=== PATIENT | male | born 1955 | race Caucasian/White ===

== ENCOUNTER → 2021-08-14 13:51 | Outpatient (CLI) | payer MEDICARE, BC, SELFPAY ==
[2021-08-17 15:47] LABS: QuantiFERON Mitogen Value >10.00 IU/mL (.); QuantiFERON Nil Value 0.13 IU/mL (.); QuantiFERON TB Gold Plus Negative (Negative); QuantiFERON TB1 Ag Value 0.11 IU/mL (.); QuantiFERON TB2 Ag Value 0.09 IU/mL (.)
== END ==
PROVIDERS: PCP Family Medicine; Referring Provider Dermatology; Visit Provider Dermatology
DX: D48.5 Neoplasm of uncertain behavior of skin (principal); L40.0 Psoriasis vulgaris; L40.59 Other psoriatic arthropathy; Z79.899 Other long term (current) drug therapy
CPT/HCPCS: 36415; 86480

== ENCOUNTER → 2023-04-28 15:43 | Outpatient (CLI) | payer MEDICARE, BC, SELFPAY ==
[2023-04-30 16:37] LABS: QuantiFERON Mitogen Value >10.00 IU/mL (.); QuantiFERON TB Gold Plus Negative (Negative); QuantiFERON TB1 Ag Value 0.05 IU/mL (.); QuantiFERON TB2 Ag Value 0.11 IU/mL (.)
== END ==
PROVIDERS: PCP Family Medicine; Referring Provider Dermatology; Visit Provider Dermatology
DX: L40.0 Psoriasis vulgaris (principal)
CPT/HCPCS: 36415; 86480

== ENCOUNTER → 2023-10-16 11:22 | Outpatient (CLI) | payer OTHER, SELFPAY ==
--- NOTE | 2023-10-16 11:24 | DI.CT.S_ITS ---
PROCEDURE: CT LUNG LOW DOSE SCREENING INDICATIONS: Nicotine dependence, cigarettes, in remission TECHNIQUE: Noncontrast 2.0-2.5 mm thick sections acquired from the pulmonary apices to the posterior costophrenic angles. 7 mm thick axial MIP, and 5 mm coronal and sagittal reformats were then acquired. For radiation dose reduction, the following was used: automated exposure control, adjustment of mA and/or kV according to patient size. COMPARISON: None. FINDINGS: Image quality: Diagnostic. Lower Neck: No enlarged lymph nodes. Thyroid: No thyroid nodules which require sonographic follow up, per consensus guidelines. Axillae: No enlarged lymph nodes. Chest Wall: Unremarkable. Bones: Unremarkable. Lungs and Pleura: No pneumothorax or pleural effusions. No consolidation or suspicious nodules. Heart: Heart size is normal. No pericardial effusion. Thoracic Vessels: The aorta and pulmonary arteries demonstrate normal size. Mediastinum and Caterina: No enlarged lymph nodes. Esophagus: No wall thickening. No hiatal hernia. Upper Abdomen: A fat density lesion is present within the left adrenal gland suggesting an adrenal adenoma. Simple appearing cysts are present at the dome of the right hepatic lobe which are incompletely characterized. Visualized upper abdomen solid organs and bowel loops appear normal. IMPRESSION: No suspicious pulmonary nodules. LUNG-RADS 1; continued annual screening, if eligible. Clinically Significant Non-pulmonary Findings: None. Dictated by: Mariah Streeter M.D. on 10/16/2023 at 14:46 Approved by: Mariah Streeter M.D. on 10/16/2023 at 14:49
== END ==
PROVIDERS: PCP Family Medicine; Referring Provider Nurse Practitioner Family; Visit Provider Nurse Practitioner Family
DX: F17.211 Nicotine dependence, cigarettes, in remission (principal); Z12.2 Encounter for screening for malignant neoplasm of respiratory organs
CPT/HCPCS: 71271